=== PATIENT | female | born 1950 | race Caucasian/White ===

== ENCOUNTER → 2016-12-04 | Outpatient (CLI) | payer MEDICARE, OTHER | END | disposition home or self-care (01) | LOC: CFH 11:04 | PROVIDERS: ATTEND Internal Medicine | DX: Z12.31 Encounter for screening mammogram for malignant neoplasm of breast (principal) | CPT/HCPCS: G0202 ==

== ENCOUNTER → 2017-01-29 | Outpatient (CLI) | payer MEDICARE, OTHER | END | disposition home or self-care (01) | LOC: CFH 11:50 | PROVIDERS: ATTEND Physician Assistant | DX: J98.11 Atelectasis (principal); R91.8 Other nonspecific abnormal finding of lung field; D86.9 Sarcoidosis, unspecified; E03.9 Hypothyroidism, unspecified; J30.9 Allergic rhinitis, unspecified; K21.9 Gastro-esophageal reflux disease without esophagitis; J45.998 Other asthma; M65.9 Synovitis and tenosynovitis, unspecified; H20.9 Unspecified iridocyclitis; M19.90 Unspecified osteoarthritis, unspecified site; M06.9 Rheumatoid arthritis, unspecified; E78.1 Pure hyperglyceridemia; G56.00 Carpal tunnel syndrome, unspecified upper limb; M54.6 Pain in thoracic spine; E55.9 Vitamin D deficiency, unspecified; F41.9 Anxiety disorder, unspecified; E78.4 Other hyperlipidemia | CPT/HCPCS: 71020 ==

== ENCOUNTER → 2017-04-29 | Outpatient (CLI) | payer MEDICARE, OTHER | END | disposition home or self-care (01) | LOC: CFH 07:59 | PROVIDERS: ATTEND Internal Medicine | DX: J84.10 Pulmonary fibrosis, unspecified (principal); R59.0 Localized enlarged lymph nodes; J98.4 Other disorders of lung; I31.3 Pericardial effusion (noninflammatory); E03.9 Hypothyroidism, unspecified; J30.9 Allergic rhinitis, unspecified; K21.9 Gastro-esophageal reflux disease without esophagitis; J45.998 Other asthma; Z13.220 Encounter for screening for lipoid disorders; M65.9 Synovitis and tenosynovitis, unspecified; D86.9 Sarcoidosis, unspecified; H20.9 Unspecified iridocyclitis; M19.90 Unspecified osteoarthritis, unspecified site; E78.1 Pure hyperglyceridemia; G56.00 Carpal tunnel syndrome, unspecified upper limb; M54.6 Pain in thoracic spine; E55.9 Vitamin D deficiency, unspecified; F41.9 Anxiety disorder, unspecified; M06.9 Rheumatoid arthritis, unspecified | CPT/HCPCS: 71250 ==

== ENCOUNTER 2017-06-20 13:42 | Emergency (ER) | payer MEDICARE, OTHER ==
[~2017-06-20] VITALS: Ht 172.7 cm; Wt 73.3 kg
[2017-06-20] MEDS ORDERED: ALBUTEROL/IPRATROPIUM 2.5MG/0.5MG, 3 ML ONE (14:24)
[2017-06-20] MEDS ORDERED: ALBUTEROL/IPRATROPIUM 2.5MG/0.5MG, 3 ML NPPB ONE (14:30)
[2017-06-20] MEDS ORDERED: SODIUM CHLORIDE 0.9% 1,000ML IVBOLUS ONE ×2 (14:30→16:00)
[2017-06-20] MEDS ORDERED: SODIUM CHLORIDE FLUSH 10ML SYR IVF ONE (14:30)
[2017-06-20 14:41] LABS: BASOPHILS # (AUTO) 0.03 x10^3/uL (0-0.1); BASOPHILS % (AUTO) 0 % (0-1); EOSINOPHILS # (AUTO) 0.09 x10^3/uL (0-0.4); EOSINOPHILS % (AUTO) 1 % (1-7); LYMPHOCYTES # (AUTO) 1.38 x10^3/uL (1-3.4); LYMPHOCYTES % (AUTO) 17 % (22-44); MD NO; MEAN CORPUSCULAR HEMOGLOBIN 30.1 pg (27.0-34.8); MEAN CORPUSCULAR HGB CONC 33.1 g/dL (32.4-35.8); MEAN PLATELET VOLUME 8.4 fL (7.4-10.4); MONOCYTES # (AUTO) 0.44 x10^3/uL (0.2-0.8); MONOCYTES % (AUTO) 5 % (2-9); NEUTROPHILS # (AUTO) 6.33 x10^3/uL (1.8-6.8); NEUTROPHILS % (AUTO) 77 % (42-75); PLATELET COUNT 343 x10^3/uL (130-400); RED BLOOD COUNT 4.69 x10^6/uL (3.82-5.3); RED CELL DISTRIBUTION WIDTH 14.1 % (9.6-15.2)
[2017-06-20 14:47] LABS: RAPID INFLUENZA A Negative (Negative); RAPID INFLUENZA B Negative (Negative)
[2017-06-20 14:52] LABS: ALANINE AMINOTRANSFERASE 25 U/L (12-78); ALBUMIN 3.9 g/dL (3.4-5.0); ANION GAP 10 mmol/L (5-15); CALCIUM 8.8 mg/dL (8.5-10.1); CHLORIDE 106 mmol/L (98-107); CREATININE 0.71 mg/dL (0.55-1.02)
[2017-06-20 14:56] LABS: ALKALINE PHOSPHATASE 75 U/L (45-117); BILIRUBIN,TOTAL 0.4 mg/dL (0.2-1.0); TOTAL PROTEIN 7.9 g/dL (6.4-8.2); TROPONIN I < 0.015 ng/mL (0.000-0.045)
[2017-06-20 16:25] VITALS: BP 157/80
== END 2017-06-20 17:50 | disposition home or self-care (01) ==
LOC: ED 16:09
DX: R05 Cough (principal); R09.81 Nasal congestion; R07.9 Chest pain, unspecified; M06.9 Rheumatoid arthritis, unspecified; J45.909 Unspecified asthma, uncomplicated; Z88.1 Allergy status to other antibiotic agents; Z88.8 Allergy status to other drugs, medicaments and biological substances
CPT/HCPCS: 36415; 71046; 80053; 84484; 85025; 87400; 93005; 94640; 96360; 96361; 99285; J7030; J7512; J7620

== ENCOUNTER → 2017-10-07 | Outpatient (CLI) | payer MEDICARE, OTHER | END | disposition home or self-care (01) | LOC: CVU 15:37 | PROVIDERS: ATTEND Internal Medicine | DX: I31.3 Pericardial effusion (noninflammatory) (principal); D86.9 Sarcoidosis, unspecified; E03.9 Hypothyroidism, unspecified; J30.9 Allergic rhinitis, unspecified; K21.9 Gastro-esophageal reflux disease without esophagitis; J45.998 Other asthma; M85.9 Disorder of bone density and structure, unspecified; H20.9 Unspecified iridocyclitis; M19.90 Unspecified osteoarthritis, unspecified site; M06.9 Rheumatoid arthritis, unspecified; E78.1 Pure hyperglyceridemia; G56.00 Carpal tunnel syndrome, unspecified upper limb; M54.6 Pain in thoracic spine; E55.9 Vitamin D deficiency, unspecified; F41.9 Anxiety disorder, unspecified | CPT/HCPCS: 93306 ==

== ENCOUNTER → 2017-11-24 | Outpatient (CLI) | payer MEDICARE, OTHER | END | disposition home or self-care (01) | LOC: CFH 14:24 | PROVIDERS: ATTEND Nurse Practitioner Primary Care | DX: J84.10 Pulmonary fibrosis, unspecified (principal); J93.9 Pneumothorax, unspecified; J98.4 Other disorders of lung; R07.81 Pleurodynia; E03.9 Hypothyroidism, unspecified; E55.9 Vitamin D deficiency, unspecified; E78.4 Other hyperlipidemia; Z79.899 Other long term (current) drug therapy | CPT/HCPCS: 71046 ==

== ENCOUNTER → 2017-12-01 | Outpatient (CLI) | payer MEDICARE, OTHER ==
[~2017-12-01] MED LIST: OMNIPAQUE 350 MG/ML, 100ML BOTTLE ONE
== END | disposition home or self-care (01) ==
LOC: CFH 12:39
PROVIDERS: ATTEND Nurse Practitioner Primary Care
DX: N85.2 Hypertrophy of uterus (principal); J84.10 Pulmonary fibrosis, unspecified; J98.4 Other disorders of lung; R59.0 Localized enlarged lymph nodes; E03.9 Hypothyroidism, unspecified; E55.9 Vitamin D deficiency, unspecified; E78.4 Other hyperlipidemia; Z79.899 Other long term (current) drug therapy
CPT/HCPCS: 71260; 74177; 82565; Q9967